=== PATIENT | male | born 1995 | race Caucasian/White ===

== ENCOUNTER 2018-07-26 13:53 | Emergency (ER) | payer BC ==
[2018-07-26 16:12] VITALS: BP 133/71
[2018-07-26] MEDS ORDERED: IPRATROPIUM/ALBUTEROL 3 ML DEYVIAL IH ONE (16:16)
--- NOTE | 2018-07-26 16:16 | EDPHY ---
H & P Stated Complaint: cough - Personal History Current Tetanus/Diphtheria Vaccine: Yes Current Tetanus Diphtheria and Acellular Pertussis (TDAP): Yes - Medical/Surgical History Hx Asthma: Yes Hx Chronic Respiratory Disease: No Hx Diabetes: No Hx Cardiac Disease: No Hx Renal Disease: No Hx Cirrhosis: No Hx Alcoholism: No Hx HIV/AIDS: No Hx Splenectomy or Spleen Trauma: No Other PMH: PNA, asthma, - Social History Smoking Status: Former smoker Time Seen by Provider: 07/26/18 15:04 HPI/ROS: Chief complaint: Cold symptoms History of present illness: This is a 23-year-old male who presents to the emergency department for cold symptoms. He has been sick for the last 3 weeks. He reports runny nose, nasal congestion, mild chest congestion and a cough. Symptoms have been persistent. He has not noticed a fever. No trouble breathing. No rash. He has had pneumonia before and is concerned he may have developed it again. Review of systems: A 10 point review of systems was obtained and other than described above was negative. (Brijesh Duncan) - Physical Exam Exam: General Appearance: Alert, nontoxic. Eyes: Pupils equal and round no injection. ENT: Tympanic membranes, external auditory canals, external ears and surrounding soft tissue including over the mastoids are unremarkable. Nasopharynx is not injected. There is no rhinorrhea. Oropharynx is not injected. There is no edema. There is no exudate. There is no asymmetry. The uvula is midline. No elevation of the tongue. There is no hoarseness, no drooling, no trismus, no stridor. Respiratory: Occasional rhonchi, no wheezing or rales. Patient is talking in full sentences. Cardiac: regular rate and rhythm Musculoskeletal: Neck is supple and non tender. Extremities have full range of motion and are non tender. Skin: No rashes or lesions. (Brijesh Duncan) Constitutional: Initial Vital Signs Temperature (C) 36.8 C 07/26/18 14:05 Heart Rate 82 07/26/18 14:05 Respiratory Rate 16 07/26/18 14:05 Blood Pressure 129/84 H 07/26/18 14:05 O2 Sat (%) 97 07/26/18 14:05 O2 Delivery Mode Room Air Allergies/Adverse Reactions: No Known Allergies Allergy (Unverified 07/26/18 14:05) Home Medications: Medication Instructions Recorded Albuterol Sulfate [Proair Hfa] 8.5 gm IH Q4-6PRN PRN #1 [email or web address] 07/26/18 Aspirin 07/26/18 Medical Decision Making - Diagnostics Imaging: I viewed and interpreted images myself - Diagnostics Imaging Results: Imaging Impressions Chest X-Ray 07/26/18 15:34 Impression: Clear lungs. No pneumonia. ED Course/Re-evaluation: Patient seen under the supervision of my secondary supervising physician Dr. Minerva Fletcher. Patient presents with cold symptoms. He is nontoxic. Chest x- ray negative for pneumonia. I am concerned for an acute bronchitis. I do not believe antibiotics are warranted at this time. He is given a DuoNeb with improvement of symptoms. Home care is discussed. He is to follow up with a primary care doctor for recheck. Return precautions are given. Patient voiced understanding and agreement with plan. (Brjiesh Duncan) Differential Diagnosis: Included but not limited to pneumonia, bronchitis, asthma exacerbation (Brijesh Duncan) Other Provider: The patient was evaluated and managed by the Physician Rotor Casting Machine Operator. My co- signature indicates that I have reviewed this chart and I agree with the findings and plan of care as documented. I am the secondary supervising physician. (Minerva Fletcher) - Data Points Medications Given: Discontinued Medications Albuterol/Ipratropium (Duoneb) 3 ml IH EDNOW ONE Stop: 07/26/18 16:17 Last Admin: 07/26/18 16:27 Dose: 3 ml Departure - Departure Disposition: Home, Routine, Self-Care Clinical Impression: Acute bronchitis Qualifiers: Bronchitis organism: unspecified organism Qualified Code(s): J20.9 - Acute bronchitis, unspecified Condition: Good Instructions: Acute Bronchitis (ED) Additional Instructions: Follow-up with a primary care doctor this week for recheck Use the inhaler, 2 puffs every 4-6 hours as needed I also recommend you use Claritin D as directed for the next few days I also recommend you use Flonase 2 sprays each nostril once daily until symptoms resolve Drink plenty of fluids to stay hydrated and get plenty of rest. If symptoms worsen or new symptoms develop return to the emergency room for recheck. Referrals: NONE *PRIMARY CARE P,. [Primary Care Provider] - As per Instructions [facility],. [Clinic] - As per Instructions Prescriptions: Albuterol Sulfate [Proair Hfa] 8.5 gm IH Q4-6PRN PRN #1 [email or web address] PRN Reason: Cough, Mild
== END 2018-07-26 16:47 | disposition home or self-care (01) ==
DX: J20.9 Acute bronchitis, unspecified (principal); Z87.891 Personal history of nicotine dependence

== ENCOUNTER 2018-10-07 13:08 | Emergency (ER) | payer BC ==
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
[2018-10-07] MEDS ORDERED: NS 1,000 ML IV ONE (13:34)
[2018-10-07] MEDS ORDERED: IOPAMIDOL (ISOVUE-300) 100 ML BTL ONE (14:03)
[2018-10-07] MEDS ORDERED: HYDROmorphONE/DILAUDID 2 MG/ML INJ IVP ONE ×2 (14:20→15:38)
[2018-10-07] MEDS ORDERED: HYDROCOD/APAP 5/325 PREPACK#6 BTL TAKEHOME ONE (18:40)
[2018-10-07 19:26] VITALS: BP 111/60
== END 2018-10-07 19:06 | disposition home or self-care (01) ==
LOC: CED 13:08
DX: S22.079A Unspecified fracture of T9-T10 vertebra, initial encounter for closed fracture (principal); E86.9 Volume depletion, unspecified; V18.0XXA Pedal cycle driver injured in noncollision transport accident in nontraffic accident, initial encounter; Y93.55 Activity, bike riding; Y92.480 Sidewalk as the place of occurrence of the external cause
CPT/HCPCS: 71045-PO; 71260-PO; 74177-PO; 80048-ER; 96361-ER; 96374-ER; 96375-ER; 96376-ER; J1170; J2270; Q9967